=== PATIENT | male | born 1995 | race Caucasian/White ===

== ENCOUNTER → 2017-05-26 | Outpatient (CLI) | payer BC | END | disposition home or self-care (01) | LOC: HKI 15:17 | DX: M25.561 Pain in right knee (principal) | CPT/HCPCS: 73564; 73564-50 ==

== ENCOUNTER → 2017-06-09 | Outpatient (CLI) | payer BC | END | disposition home or self-care (01) | LOC: HKI 13:41 | DX: Z47.89 Encounter for other orthopedic aftercare (principal); S46.211D Strain of muscle, fascia and tendon of other parts of biceps, right arm, subsequent encounter | CPT/HCPCS: G0463 ==

== ENCOUNTER → 2017-07-19 | Outpatient (CLI) | payer BC | END | disposition home or self-care (01) | LOC: HKI 13:53 | DX: S76.811D Strain of other specified muscles, fascia and tendons at thigh level, right thigh, subsequent encounter (principal); X58.XXXD Exposure to other specified factors, subsequent encounter | CPT/HCPCS: G0463 ==